=== PATIENT | male | born 1990 | race Caucasian/White ===

== ENCOUNTER 2016-09-14 23:01 | Emergency (ER) | payer SELFPAY ==
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
== END 2016-09-14 23:15 ==
LOC: ER 23:01
DX: F10.129 Alcohol abuse with intoxication, unspecified (principal)